=== PATIENT | female | born 1950 | race Caucasian/White ===

== ENCOUNTER 2017-06-21 08:55 | Outpatient (CLI) | payer BC ==
--- NOTE | 2017-06-21 11:17 | MMO ---
DIAGNOSTIC RIGHT MAMMOGRAM: CLINICAL HISTORY: Followup exam for decreasing sized right breast nodule. COMPARISON: Reference is made to 03/01/17 exam. FINDINGS: There are scattered fibroglandular elements of the right breast. Previous small mass of the right b reast has resolved. No mass is currently visualized. Examination was performed in conjunction with diagnostic mammography which also reveals resolution of sonographic finding. IMPRESSION: BI-RADS 2 - benign findings. Interval resolution of prior mass. The patient should routine annual screening mammography. BIRADS 2: Benign Finding(s) Routine annual screening mammography (for women over age 40) POS: LOBO
--- NOTE | 2017-06-21 11:41 | ULT ---
DIAGNOSTIC RIGHT BREAST ULTRASOUND: CLINICAL HISTORY: Followup for decreasing sized right breast nodule. FINDINGS: Localized sonographic imaging of the 9 o'clock location right breast at site of prior hypoechoic foc us reveals interval resolution. No focal mass, cyst, or other localizable pathology. IMPRESSION: BI-RADS 2 - benign findings. The patient should return to routine annual screening mammography. POS: LOBO
== END 2017-06-21 08:56 | disposition home or self-care (01) ==
LOC: MAMMO 08:55
PROVIDERS: ATTEND Surgery
DX: N63.0 Unspecified lump in unspecified breast (principal)
CPT/HCPCS: G0206-RT

== ENCOUNTER 2018-06-30 11:48 | Outpatient (CLI) | payer MEDICARE | END 2018-06-30 11:49 | disposition home or self-care (01) | LOC: BICMAMMO 11:48 | PROVIDERS: ATTEND Family Medicine | DX: Z12.31 Encounter for screening mammogram for malignant neoplasm of breast (principal); R92.1 Mammographic calcification found on diagnostic imaging of breast | CPT/HCPCS: 77063; 77067 ==

== ENCOUNTER 2019-07-03 12:51 | Outpatient (CLI) | payer MEDICARE ==
--- NOTE | 2019-07-03 13:31 | MMO ---
Bilateral MAMMO Bilat Screen [facility]. CLINICAL HISTORY: Patient is 69 years old and is seen for screening. The patient has no family history of breast cancer. The patient has no personal history of cancer. VIEWS: The views performed were: bilateral craniocaudal with tomosynthesis; bilateral mediolateral oblique with tomosynthesis; and left craniocaudal. FILMS COMPARED: The present examination has been compared to prior imaging studies performed at [facility] on 02/05/2016, 02/18/2017, 03/01/2017 and 06/30/2018. This study has been interpreted with the assistance of computer-aided detection. MAMMOGRAM FINDINGS: There are scattered fibroglandular densities. There are stable benign appearing calcifications seen in both breasts. There are no suspicious masses, suspicious calcifications, or new areas of architectural distortion. IMPRESSION: THERE IS NO MAMMOGRAPHIC EVIDENCE OF MALIGNANCY. A ROUTINE FOLLOW-UP MAMMOGRAM IN 1 YEAR IS RECOMMENDED. THE RESULTS OF THIS EXAM WERE SENT TO THE PATIENT. ACR BI-RADS Category 2 - Benign finding MAMMOGRAPHY NOTE: 1. A negative mammogram report should not delay a biopsy if a dominant of clinically suspicious mass is present. 2. Approximately 10% to 15% of breast cancers are not detected by mammography. 3. Adenosis and dense breasts may obscure an underlying neoplasm. Reported by: MARTY BIRMINGHAM MD Electonically Signed: [id number]
== END 2019-07-03 12:52 | disposition home or self-care (01) ==
LOC: BICMAMMO 12:51
PROVIDERS: ATTEND Family Medicine
DX: Z12.31 Encounter for screening mammogram for malignant neoplasm of breast (principal)
CPT/HCPCS: 77063; 77067

== ENCOUNTER 2020-07-01 10:44 | Outpatient (CLI) | payer MEDICARE ==
--- NOTE | 2020-07-01 11:17 | BD ---
EXAM: Bone densitometry using DEXA HISTORY: 70 yo female. Screening for postmenopausal osteoporosis FINDINGS: L1--bone mineral density 1.043 g/sq cm; T score 0.5 ; Z score 2.3 L2--bone mineral density 1.167 g/sq cm; T score 1.3 ; Z score 3.3 L3--bone mineral density 1.098 g/sq cm; T score 1.9 ; Z score 4.1 L4--bone mineral density 1.186 g/sq cm; T score 1.1 ; Z score 3.3 Total L1-L4--bone mineral density 1.179 g/sq cm; T score 1.2 ; Z score 3.3 Left femoral neck--bone mineral density0.876; T score 0.2 ; Z score 2.0 Total proximal left femur--bone mineral density 1.139; T score 1.6 ; Z score 3.1 IMPRESSION: Normal BMD
== END 2020-07-01 10:45 | disposition home or self-care (01) ==
LOC: BICMAMMO 10:44
PROVIDERS: ATTEND Family Medicine
DX: Z13.820 Encounter for screening for osteoporosis (principal); Z78.0 Asymptomatic menopausal state
CPT/HCPCS: 77080

== ENCOUNTER 2020-07-09 11:25 | Outpatient (CLI) | payer MEDICARE ==
--- NOTE | 2020-07-09 12:34 | MMO ---
Bilateral MAMMO Bilat Screen [facility]. CLINICAL HISTORY: Patient is 70 years old and is seen for screening. The patient has no family history of breast cancer. The patient has no personal history of cancer. VIEWS: The views performed were: bilateral craniocaudal with tomosynthesis and bilateral mediolateral oblique with tomosynthesis. FILMS COMPARED: The present examination has been compared to prior imaging studies performed at [facility] on 02/18/2017, 03/01/2017, 06/30/2018 and 07/03/2019. This study has been interpreted with the assistance of computer-aided detection. MAMMOGRAM FINDINGS: There are scattered fibroglandular densities. There are stable benign appearing calcifications seen in both breasts. There are no suspicious masses, suspicious calcifications, or new areas of architectural distortion. IMPRESSION: THERE IS NO MAMMOGRAPHIC EVIDENCE OF MALIGNANCY. A ROUTINE FOLLOW-UP MAMMOGRAM IN 1 YEAR IS RECOMMENDED. THE RESULTS OF THIS EXAM WERE SENT TO THE PATIENT. ACR BI-RADS Category 2 - Benign finding MAMMOGRAPHY NOTE: 1. A negative mammogram report should not delay a biopsy if a dominant of clinically suspicious mass is present. 2. Approximately 10% to 15% of breast cancers are not detected by mammography. 3. Adenosis and dense breasts may obscure an underlying neoplasm. Reported by: MARTY BIRMINGHAM MD Electonically Signed: [id number]
== END 2020-07-09 11:26 | disposition home or self-care (01) ==
LOC: BICMAMMO 11:25
PROVIDERS: ATTEND Family Medicine
DX: Z12.31 Encounter for screening mammogram for malignant neoplasm of breast (principal)
CPT/HCPCS: 77063; 77067

== ENCOUNTER 2020-09-02 06:28 | Outpatient (CLI) | payer MEDICARE ==
[2020-09-02 11:12] LABS: Anion Gap 14 mmol/L (10-20); BUN (Urea Nitrogen) 18 mg/dL (9.8-20.1); Calc. Creatinine Clearance 0 mL/min (70-130); Calcium 9.3 mg/dL (7.8-10.44); Carbon Dioxide 29 mmol/L (23-31); Chloride 101 mmol/L (98-107); Glucose 103 mg/dL (80-115); Potassium 4.6 mmol/L (3.5-5.1); Sodium 139 mmol/L (136-145)
[2020-09-02 11:24] LABS: #Eosinphils 0.2 10x3/uL (0.0-0.5); #Monocytes 0.6 10x3/uL (0.0-1.1); #Neutrophils 3.9 10x3/uL (1.5-8.4); %Basophils 0.7 % (0.0-2.0); %Eosinophils 3.1 % (0.0-6.0); %Lymphocytes 20.5 % (18.0-47.0); %Monocytes 10.4 % (0.0-10.0); Hemoglobin 12.2 g/dL (12.0-16.0); Mean Corpuscular HGB CONC 32.1 G/DL (32.0-36.0); Mean Corpuscular Hemoglobin 30.3 PG (27.0-33.0); Mean Corpuscular Volume 94.5 fl (80.0-100.0); Mean Platelet Volume 9.9 fl (7.4-10.4); Platelet Count 338 10x3/uL (130-400); RBC Distribution Width 14.3 % (11.5-14.5); Red Blood Cell (RBC) Count 4.02 10x6/uL (3.90-5.20); White Blood Cell (WBC) Count 6.1 10x3/uL (4.5-11.0)
[2020-09-02 19:56] LABS: SARS-CoV-2 MS2 Positive; SARS-CoV-2 N Gene Negative; SARS-CoV-2 S Gene Negative; SARS-CoV-2 by NAA Not Detected (NotDetected); SARS-CoV-2 orf1ab Negative
== END 2020-09-02 06:29 | disposition home or self-care (01) ==
LOC: LABBT 06:28
PROVIDERS: ATTEND Surgery
DX: Z01.812 Encounter for preprocedural laboratory examination (principal); Z20.828 Contact with and (suspected) exposure to other viral communicable diseases; K44.9 Diaphragmatic hernia without obstruction or gangrene
CPT/HCPCS: 80048; 85025; U0003; 87635

== ENCOUNTER 2020-09-05 05:57 | Day surgery (SDC) | payer MEDICARE ==
[2020-09-04 09:56] VITALS: BMI 34.3
[2020-09-05] MEDS ORDERED: Lidocaine 1% w/Epinephrine 1:100K 20 ML VIAL ONE (06:37)
[2020-09-05] MEDS ORDERED: Bupivacaine 0.25% HCL 30 ML VIAL ONE (06:37)
[2020-09-05] MEDS ORDERED: Dexmedetomidine 200 MCG/2 ML VIAL ONE (07:14)
[2020-09-05] MEDS ORDERED: Fentanyl 100 MCG/2 ML VIAL ONE ×2 (07:14→09:44)
[2020-09-05] MEDS ORDERED: HYDROmorphone 0.5 MG/0.5 ML SYRINGE ONE (07:14)
[2020-09-05] MEDS ORDERED: Rocuronium Bromide 10 MG/ML (10ML VIAL) ONE (10:00)
[2020-09-05] MEDS ORDERED: Ondansetron PF 4 MG/2 ML Vial ONE (10:00)
[2020-09-05] MEDS ORDERED: Lidocaine 1% PF 5 ML VIAL ONE (10:00)
[2020-09-05] MEDS ORDERED: Dexamethasone 20 MG/5 ML VIAL ONE (10:00)
[2020-09-05] MEDS ORDERED: Ketorolac Tromethamine 30 MG/ML VIAL ONE (10:00)
[2020-09-05] MEDS ORDERED: PROPOFOL 200 MG/20 ML VIAL ONE (10:00)
[2020-09-05] MEDS ORDERED: ePHEDrine 50 MG/ML VIAL ONE (10:00)
[2020-09-05] MEDS ORDERED: Glycopyrrolate 0.2 MG/ML 5 ML SYRINGE ONE (10:00)
[2020-09-05] MEDS ORDERED: Morphine 2 MG/ML VIAL ONE (13:44)
[2020-09-05] MEDS ORDERED: Morphine 2 MG/ML VIAL SLOW IVP PRN (15:24)
[2020-09-05] MEDS ORDERED: Hydrocodone-Acetamin 15 ML UDCUP PO PRN (15:24)
[2020-09-05] MEDS ORDERED: hydrALAZINE 20 MG/ML VIAL SLOW IVP PRN (15:24)
[2020-09-05] MEDS ORDERED: Dextrose 5% in Water 1,000 ML IV PRN (15:24)
[2020-09-05] MEDS ORDERED: Promethazine HCl 25 MG/ML VIAL IM PRN (15:24)
[2020-09-05] MEDS ORDERED: Acetaminophen 325 MG TAB PO PRN (15:24)
[2020-09-05] MEDS ORDERED: Dextrose 50% Abboject 50 ML SYRINGE SLOW IVP PRN (15:24)
[2020-09-05] MEDS ORDERED: Ondansetron PF 4 MG/2 ML Vial IVP PRN (15:24)
[2020-09-05] MEDS: Morphine 4 MG/ML VIAL SLOW IVP PRN ×2 (16:34→22:56)
[2020-09-05] MEDS: Sodium Chloride 0.9% 1,000 ML IV SCH (17:44)
[2020-09-05] MEDS ORDERED: rOPINIRole HCl 2 MG TAB PO SCH (21:00)
[2020-09-05] MEDS: Carvedilol 3.125 MG TAB PO SCH (21:28)
[2020-09-05] MEDS: Famotidine 20 MG TAB PO SCH (21:29)
[2020-09-05] MEDS: Famotidine/PF 20 mg/2ml Vial SLOW IVP SCH (21:29)
[2020-09-06] MEDS: Sodium Chloride 0.9% 1,000 ML IV SCH (08:24)
[2020-09-06] MEDS: Famotidine 20 MG TAB PO SCH (08:29)
[2020-09-06] MEDS: Famotidine/PF 20 mg/2ml Vial SLOW IVP SCH (08:30)
[2020-09-06] MEDS: Carvedilol 3.125 MG TAB PO SCH (08:30)
[2020-09-06] MEDS ORDERED: Allopurinol 100 MG TAB PO SCH (09:00)
[2020-09-06] MEDS ORDERED: Enoxaparin Sodium 40 MG/0.4 ML SYRINGE SC SCH (09:00)
[2020-09-06] MEDS ORDERED: Meloxicam 15 MG TAB PO SCH (09:00)
[2020-09-06] MEDS ORDERED: Oxybutynin ER 5 MG TAB PO SCH (09:00)
[2020-09-06] MEDS ORDERED: Losartan 25 MG TAB PO SCH (09:00)
--- NOTE | 2020-09-06 09:18 | DIS ---
DATE OF ADMISSION: 09/05/2020 DATE OF DISCHARGE: 09/06/2020 ADMITTING DIAGNOSIS: Hiatal hernia. DISCHARGE DIAGNOSIS: Hiatal hernia. PROCEDURE: Recurrent hiatal hernia repair with mesh and fundoplication by Dr. Villareal without complication. CONDITION ON DISCHARGE: Improved. STAFF: Dr. Villareal. HOSPITAL COURSE: On postop day 1, the patient is tolerating the liquids. Her pain is mostly resolved. She is ambulatory. She is using incentive spirometer well. She is to be discharged home. Prescriptions for Lortab, elixir, Zofran sent to her pharmacy. She will follow up with me in 2 weeks. Job ID: [id number]
[2020-09-06 12:21] VITALS: BP 133/74; TEMP 98.3
--- NOTE | 2020-09-08 12:53 | OP ---
DATE OF PROCEDURE: 09/05/2020 PREOPERATIVE DIAGNOSIS: Recurrent hiatal hernia with gastroesophageal reflux disease. POSTOPERATIVE DIAGNOSIS: Recurrent hiatal hernia with gastroesophageal reflux disease. PROCEDURE PERFORMED: Laparoscopic recurrent paraesophageal hiatal hernia repair with mesh and fundoplication. ANESTHESIA: General. ESTIMATED BLOOD LOSS: Minimal. COMPLICATIONS: None. SPECIMEN: None. FINDINGS: Normal postoperative EGD. TECHNIQUE: The patient was taken to the operating room and laid supine on the operating room table. After general anesthetic was obtained, OG tube was used to decompress the stomach. The abdomen was prepped and draped in a sterile fashion. Left subcostal 5-mm Optiview trocar was placed in usual fashion. High-flow pneumoperitoneum was obtained. Subxiphoid right-sided 5-mm port was placed. Right lower quadrant and left lower quadrant 5-mm ports were placed and 5-mm camera port was placed above the umbilicus. The left subcostal port was switched out to an 8 port. The patient had previous hiatal hernia repair. The gastrohepatic ligament was again incised, and the right perri of the diaphragm found sharply the wrap, which was up into the chest cavity. It was able to be brought back down into the abdominal cavity. A full 360-degree dissection was performed. The hernia sac was completely removed, bringing the GE junction, fundus all back down into the abdominal cavity. The wrap was intact, but slightly loose. 44 bougie was brought in its tip left in the antrum of the stomach. The posterior defect was closed again the right and left crura with Ethibond suture and the Ti-KNOT system, two sutures. 5 x 3 cm Strattice mesh was brought into the field and used to overlay and sewn to the posterior muscle repair. It was also glued to the crura using Tisseel and the Tisseel mat. The wrap itself appeared intact and had not slipped. An additional suture was placed to tighten the wrap, but it is still floppy and not too tight. The bougie was removed. EGD scope was passed through esophagus, stomach to the level of duodenum without obstruction. The GE junction was back into the abdominal cavity. There was no significant stenosis at the GE junction or the diaphragmatic hiatus. EGD scope was used to decompress the stomach, was pulled and removed. The liver retractor was removed without injury. All ports were removed without bleeding. Pneumoperitoneum was let down. A 4-0 Monocryl and Dermabond were used to close all skin incisions. The patient was en route to Recovery in stable condition. All instrument counts, needle counts, and lap counts were correct. Job ID: [id number]
== END 2020-09-06 13:00 | disposition home or self-care (01) ==
LOC: SDC 05:57 → SURG B 13:24 → SDC 09-06 13:00
PROVIDERS: ATTEND Surgery
PROC: 0BUT4JZ Supplement Diaphragm with Synthetic Substitute, Percutaneous Endoscopic Approach (ICD-10-PCS; principal; 2020-09-05)
PROC: 0DV44ZZ Restriction of Esophagogastric Junction, Percutaneous Endoscopic Approach (ICD-10-PCS; 2020-09-05)
DX: K44.9 Diaphragmatic hernia without obstruction or gangrene (principal); K21.9 Gastro-esophageal reflux disease without esophagitis; G47.33 Obstructive sleep apnea (adult) (pediatric); E78.5 Hyperlipidemia, unspecified; I10 Essential (primary) hypertension; M19.90 Unspecified osteoarthritis, unspecified site; E11.9 Type 2 diabetes mellitus without complications; E66.9 Obesity, unspecified; Z68.34 Body mass index [BMI] 34.0-34.9, adult; Z79.1 Long term (current) use of non-steroidal anti-inflammatories (NSAID); Z79.82 Long term (current) use of aspirin; Z79.899 Other long term (current) drug therapy
CPT/HCPCS: 43282; 93005; J2270; Q4130; 93010; J0690; J1100; J1170; J1650; J1885; J2405; J2704; J3010; J3490; S0020

== ENCOUNTER 2021-06-09 09:57 | Outpatient (CLI) | payer MEDICARE ==
[2021-06-09 23:09] LABS: SARS-CoV-2 PCR by NAA Not Detected (NotDetected)
== END 2021-06-09 09:58 | disposition home or self-care (01) ==
LOC: LABBT 09:57
PROVIDERS: ATTEND Surgery
DX: Z01.812 Encounter for preprocedural laboratory examination (principal); K44.9 Diaphragmatic hernia without obstruction or gangrene; Z20.822 Contact with and (suspected) exposure to COVID-19
CPT/HCPCS: U0003; U0005

== ENCOUNTER 2021-07-16 09:58 | Outpatient (CLI) | payer MEDICARE | END 2021-07-16 09:59 | disposition home or self-care (01) | LOC: BICRAD 09:58 | PROVIDERS: ATTEND Physician Assistant Medical | DX: R05.3 Chronic cough (principal); Z98.890 Other specified postprocedural states | CPT/HCPCS: 71046 ==

== ENCOUNTER 2021-08-03 11:54 | Outpatient (CLI) | payer MEDICARE ==
[2021-08-03 15:09] LABS: Bilirubin Neg (Negative); Blood, Urine 10 (Negative); Clarity Slightly Cloudy (Clear); Glucose, Urine (Dipstick) Normal (Negative); Ketone, Urine Negative (Negative); Leukocyte 500 (Negative); Nitrite Positive (Negative); Protein, Urine (Dipstick) Negative (Neg-Trace); Urobilinogen Normal mg/dL (Less than 2)
[2021-08-03 15:09] LABS: Hemoglobin 11.8 g/dL (12.0-15.5); Mean Corpuscular HGB CONC 32.2 g/dL (32.0-36.0); Mean Corpuscular Hemoglobin 31.1 pg (27.0-33.0); Mean Corpuscular Volume 96.6 fl (81.6-98.3); Mean Platelet Volume 9.7 fl (7.4-10.4); Platelet Count 376 10x3/uL (150-450); RBC Distribution Width 13.2 % (11.5-14.5); Red Blood Cell (RBC) Count 3.79 10x6/uL (3.90-5.03); White Blood Cell (WBC) Count 5.9 10x3/uL (3.5-10.5)
[2021-08-03 15:27] LABS: Anion Gap 13 mmol/L (10-20); BUN (Urea Nitrogen) 22 mg/dL (9.8-20.1); Calc. Creatinine Clearance 0 mL/min (70-130); Calcium 9.2 mg/dL (7.8-10.44); Carbon Dioxide 29 mmol/L (23-31); Chloride 100 mmol/L (98-107); Glucose 97 mg/dL (80-115); Potassium 4.8 mmol/L (3.5-5.1); Sodium 137 mmol/L (136-145)
[2021-08-03 16:15] LABS: Bacteria/HPF 4+ HPF (None Seen); RBC/HPF 0-3 HPF (0-3); Squamous Epithelial 0-3 HPF (0-3); WBC/HPF 21-50 HPF (0-3)
[2021-08-04 13:27] LABS: SARS-CoV-2 PCR by NAA Not Detected (NotDetected)
== END 2021-08-03 11:55 | disposition home or self-care (01) ==
LOC: LABBT 11:54
PROVIDERS: ATTEND Urology
DX: Z01.818 Encounter for other preprocedural examination (principal); Z20.822 Contact with and (suspected) exposure to COVID-19
CPT/HCPCS: 80048; 81001; 85027; 87086; 93005; U0003; U0005; 87077; 87186; 93010

== ENCOUNTER 2021-08-07 07:13 | Day surgery (SDC) | payer MEDICARE ==
[2021-08-06 11:55] VITALS: BMI 39.1
[2021-08-07] MEDS ORDERED: ceFAZolin 2 GM/DEX 5% 100 ML BAG ONE (07:32)
[2021-08-07] MEDS ORDERED: Famotidine/PF 20 mg/2ml Vial ONE (09:18)
[2021-08-07] MEDS ORDERED: Fentanyl 100 MCG/2 ML VIAL ONE (09:18)
[2021-08-07] MEDS ORDERED: Midazolam HCl 2 mg/2 ml Vial ONE (09:18)
[2021-08-07] MEDS ORDERED: Metoclopramide HCl 10 MG/2 ML VIAL ONE (09:30)
[2021-08-07] MEDS ORDERED: Lidocaine 1% PF 5 ML VIAL ONE (09:30)
[2021-08-07] MEDS ORDERED: PROPOFOL 200 MG/20 ML VIAL ONE (09:30)
[2021-08-07] MEDS ORDERED: Ondansetron PF 4 MG/2 ML Vial ONE (09:30)
[2021-08-07] MEDS ORDERED: Ketorolac Tromethamine 30 MG/ML VIAL ONE (10:31)
[2021-08-07] MEDS ORDERED: Phenazopyridine HCl 100 MG TAB ONE (10:35)
== END 2021-08-07 14:45 | disposition home or self-care (01) ==
LOC: SDC 07:13
PROVIDERS: ATTEND Urology
PROC: 0TVD8ZZ Restriction of Urethra, Via Natural or Artificial Opening Endoscopic (ICD-10-PCS; principal; 2021-08-07)
DX: N36.42 Intrinsic sphincter deficiency (ISD) (principal); N39.3 Stress incontinence (female) (male); N32.81 Overactive bladder; I10 Essential (primary) hypertension; E11.9 Type 2 diabetes mellitus without complications; E78.5 Hyperlipidemia, unspecified; K21.9 Gastro-esophageal reflux disease without esophagitis; E66.9 Obesity, unspecified; Z68.39 Body mass index [BMI] 39.0-39.9, adult; Z79.82 Long term (current) use of aspirin; Z79.899 Other long term (current) drug therapy
CPT/HCPCS: 52327; L8606; J1885; J2250; J2405; J2704; J2765; J3010; S0028

== ENCOUNTER 2022-05-05 10:38 | Outpatient (CLI) | payer MEDICARE | END 2022-05-05 10:39 | disposition home or self-care (01) | LOC: BICRAD 10:38 | PROVIDERS: ATTEND Nurse Practitioner Family | DX: G62.9 Polyneuropathy, unspecified (principal); M43.16 Spondylolisthesis, lumbar region; M51.86 Other intervertebral disc disorders, lumbar region; Z79.899 Other long term (current) drug therapy | CPT/HCPCS: 36415; 72100; 80053; 82607; 83036; 84443; 85025; 85652; 86038; 86225 ==

== ENCOUNTER 2022-09-01 08:24 | Outpatient (CLI) | payer MEDICARE | END 2022-09-01 08:25 | disposition home or self-care (01) | LOC: RAD 08:24 | PROVIDERS: ATTEND Surgery | DX: K44.9 Diaphragmatic hernia without obstruction or gangrene (principal); K21.9 Gastro-esophageal reflux disease without esophagitis; K22.89 Other specified disease of esophagus | CPT/HCPCS: 74220 ==

== ENCOUNTER 2022-10-27 11:09 | Outpatient (CLI) | payer MEDICARE, OTHER | END 2022-10-27 11:10 | disposition home or self-care (01) | LOC: RAD 11:09 | PROVIDERS: ATTEND Internal Medicine Critical Care Medicine | DX: R06.00 Dyspnea, unspecified (principal); M47.814 Spondylosis without myelopathy or radiculopathy, thoracic region | CPT/HCPCS: 71046 ==

== ENCOUNTER 2022-11-26 09:49 | Outpatient (CLI) | payer MEDICARE, OTHER | END 2022-11-26 09:50 | disposition home or self-care (01) | LOC: TBSIIMAG 09:49 | PROVIDERS: ATTEND Orthopaedic Surgery | DX: M54.32 Sciatica, left side (principal); M47.814 Spondylosis without myelopathy or radiculopathy, thoracic region; M47.816 Spondylosis without myelopathy or radiculopathy, lumbar region; M25.78 Osteophyte, vertebrae; M47.815 Spondylosis without myelopathy or radiculopathy, thoracolumbar region; M48.05 Spinal stenosis, thoracolumbar region; M48.062 Spinal stenosis, lumbar region with neurogenic claudication; M47.817 Spondylosis without myelopathy or radiculopathy, lumbosacral region | CPT/HCPCS: 72148 ==

== ENCOUNTER 2023-03-29 14:55 | Outpatient (CLI) | payer MEDICARE, OTHER | END 2023-03-29 14:56 | disposition home or self-care (01) | LOC: BICMRI 14:55 | PROVIDERS: ATTEND Orthopaedic Surgery | DX: M47.22 Other spondylosis with radiculopathy, cervical region (principal); M50.123 Cervical disc disorder at C6-C7 level with radiculopathy; M46.02 Spinal enthesopathy, cervical region | CPT/HCPCS: 72141 ==

== ENCOUNTER 2023-05-17 13:22 | Outpatient (CLI) | payer MEDICARE, OTHER | END 2023-05-17 13:23 | disposition home or self-care (01) | LOC: BICMAMMO 13:22 | PROVIDERS: ATTEND Nurse Practitioner Family | DX: Z12.31 Encounter for screening mammogram for malignant neoplasm of breast (principal); N63.15 Unspecified lump in the right breast, overlapping quadrants | CPT/HCPCS: 77063; 77067 ==

== ENCOUNTER 2023-05-24 13:42 | Outpatient (CLI) | payer MEDICARE, OTHER | END 2023-05-24 13:43 | disposition home or self-care (01) | LOC: BICMAMMO 13:42 | PROVIDERS: ATTEND Nurse Practitioner Family | DX: R92.8 Other abnormal and inconclusive findings on diagnostic imaging of breast (principal) | CPT/HCPCS: 76642; 77065; G0279 ==

== ENCOUNTER 2023-11-29 08:42 | Outpatient (CLI) | payer MEDICARE, OTHER | END 2023-11-29 08:43 | disposition home or self-care (01) | LOC: BICMAMMO 08:42 | PROVIDERS: ATTEND Nurse Practitioner Family | DX: N63.11 Unspecified lump in the right breast, upper outer quadrant (principal) | CPT/HCPCS: 77065; G0279 ==